=== PATIENT | female | born 1990 | race Caucasian/White ===

== ENCOUNTER 2023-02-06 16:32 | Emergency (ER) | payer MEDICAID ==
[~2023-02-06] VITALS: Ht 160 cm; Wt 63.0 kg
[2023-02-06 16:34] VITALS: BP 110/69; PULSE 79; RESP 20; TEMP 98.2; O2SAT 100
[2023-02-06] MEDS ORDERED: SULF1TAB48 MT (16:58)
[2023-02-06] MEDS ORDERED: IBUP-2028 MT (16:58)
== END 2023-02-06 17:36 | disposition home or self-care (01) ==
LOC: ER 16:32
DX: M25.562 Pain in left knee (principal)
CPT/HCPCS: 99283; Z7610

== ENCOUNTER 2023-12-12 10:36 | Emergency (ER) | payer MEDICAID, OTHER ==
[~2023-12-12] VITALS: Ht 162.6 cm; Wt 74.8 kg
[~2023-12-12 10:36] MED LIST: IBUP-2028 MT; SULF1TAB48 MT
[2023-12-12 10:40] VITALS: BP 124/52; PULSE 52; RESP 16; TEMP 98.2; O2SAT 100
[2023-12-12 11:09] LABS: BASOPHILS % 0.6 % (0.0-2.0); EOSINOPHILS % 1.8 % (0.0-5.0); HEMATOCRIT. 42.4 % (36.0-48.0); HEMOGLOBIN. 13.9 g/dL (12.0-16.0); LYMPHOCYTES % 26.7 % (20.0-50.0); MEAN CORPUSCULAR HGB CONC 32.7 g/dL (31.0-37.0); MEAN CORPUSCULAR VOLUME 91.7 fL (81.0-99.0); MEAN PLATELET VOLUME 9.8 fl (7.4-10.4); MONOCYTES % 6.3 % (2.0-8.0); NEUTROPHILS % 64.6 % (40.0-76.0); PLATELET 302 x1000/uL (130-400); RED BLOOD CELL COUNT 4.63 mill/uL (4.2-5.4); RED CELL DISTRIBUTION WIDTH 13.3 % (11.6-14.6)
[2023-12-12 11:19] LABS: CHLORIDE 104 mEq/L (98-107); POTASSIUM 3.6 mEq/L (3.5-5.1); SODIUM 139 mEq/L (136-145)
[2023-12-12 11:20] LABS: CARBON DIOXIDE 29 mEq/L (21-32)
[2023-12-12 11:21] LABS: CALCIUM 9.8 mg/dL (8.7-10.4)
[2023-12-12 11:25] LABS: CREATININE 0.9 mg/dL (0.6-1.0); GLUCOSE 87 mg/dL (70-105)
[2023-12-12 11:26] LABS: UREA NITROGEN BLOOD 8 mg/dL (9-23)
[2023-12-12 11:36] LABS: TROPONIN I HIGH SENSITIVITY < 4 ng/L (3.0-34)
[2023-12-12] MEDS: ACETAMINOPHEN 325MG TABLET PO ONE (12:10)
[2023-12-12] MEDS: KETOROLAC 15MG/ML VIAL IM ONE (12:10)
[2023-12-12] MEDS ORDERED: CYCL10TA21 MT (12:19)
== END 2023-12-12 16:39 | disposition home or self-care (01) ==
LOC: ER 10:36
DX: R07.89 Other chest pain (principal); M54.50 Low back pain, unspecified; V49.49XA Driver injured in collision with other motor vehicles in traffic accident, initial encounter; Y93.89 Activity, other specified; Y92.89 Other specified places as the place of occurrence of the external cause; Y99.8 Other external cause status
CPT/HCPCS: 99285; 72131; 71045; 80048; 85025; 84484; 36415; 93005; 96372; J1885